=== PATIENT | female | born 1955 | race Caucasian/White ===

== ENCOUNTER 2017-11-21 17:02 | Emergency (ER) | payer OTHER ==
[~2017-11-21] VITALS: Ht 150 cm; Wt 54.0 kg
--- NOTE | ~2017-11-21 | EKG ---
[address] [place] [address] ELECTROCARDIOGRAM REPORT Name: KIMBER BRADLEY Room #: [id number] Admission: 11/21/17 Attend Phys: Discharge: 11/21/17 Date of : 55 Report #: [id number] THIS REPORT FOR: //name// [facility] ED Test Date: 2017-11-21 Test Time: 17:18:55 Pat Name: KIMBER CHRISTIE Department: Room: Gender: F Installation Supervisor: RAE : 1955 Requested By: Ayaan Stoddard Order Number: [id number] MD: Eugene Rooney Measurements Intervals [place] Rate: 67 P: 12 NC: 183 QRS: -13 QRSD: 87 T: 17 QT: 401 QTc: 424 Interpretive Statements Sinus rhythm Normal tracing No previous ECG available for comparison Electronically Signed On 11-22-2017 8:31:01 CDT by Eugene Rooney [email or web address] <ELECTRONICALLY SIGNED> By: Eugene Rooney MD, [facility] 11/22/17 0831 1718 1718 Eugene Rooney MD, FACC /EPI
[2017-11-21 17:21] LABS: BASOPHILS 0.9 % (0.0-2.0); EOSINOPHILS 0.8 % (0.0-3.0); HEMATOCRIT 38.3 % (37.0-47.0); LYMPHOCYTES 32.6 % (24.0-44.0); MCH 29.3 pg (26.0-34.0); MCHC 33.8 g/dL (28.0-37.0); MCV 86.7 fL (80.0-100.0); MONOCYTES 5.9 % (1.0-8.0); PLATELET COUNT 216 thou/uL (150-400); POLYS 59.8 % (36.0-66.0); RBC 4.42 mil/uL (4.20-5.00); RDW 12.5 % (10.5-14.5); WBC 6.6 thou/uL (4.0-11.0)
[2017-11-21 17:30] LABS: ANION GAP 8 mmol/L (7-16); BUN 18 mg/dL (7-18); CALCIUM 9.3 mg/dL (8.5-10.1); CHLORIDE 104 mmol/L (98-107); CO2 26 mmol/L (21-32); CREATININE 0.9 mg/dL (0.6-1.0); GLUCOSE 93 mg/dL (74-106); POTASSIUM 3.6 mmol/L (3.5-5.1); SODIUM 138 mmol/L (136-145)
[2017-11-21 17:38] LABS: ALBUMIN 4.1 g/dL (3.4-5.0); SGOT 23 U/L (15-37); SGPT 26 U/L (30-65); TOTAL BILIRUBIN 0.5 mg/dL (<0.1-1.0); TROPONIN-I <0.06 ng/mL (<0.06)
[2017-11-21 17:49] LABS: URINE BILIRUBIN NEGATIVE (Negative); URINE BLOOD 1+ (Negative); URINE CLARITY CLEAR; URINE COLOR YELLOW; URINE GLUCOSE-RANDOM* NEGATIVE (Negative); URINE KETONES NEGATIVE (Negative); URINE LEUKOCYTES-REFLEX NEGATIVE (Negative); URINE NITRITE-REFLEX NEGATIVE (Negative); URINE PROTEIN (DIPSTICK) NEGATIVE (Negative); URINE UROBILINOGEN 0.2 E.U./dl (0.2-1.0)
[2017-11-21 17:59] LABS: BACTERIA-REFLEX 1-9 Few /HPF (None Seen); CASTS None Seen /LPF (None Seen); CRYSTALS None Seen /LPF (None Seen); SQUAMOUS 0-3 Few /LPF (0-3); URINE RBC 0-2 Rare /HPF (0-2); URINE WBC-REFLEX None Seen /HPF (0-5)
[2017-11-21] MEDS ORDERED: NEURONTIN 300300 M1 PO (18:06)
[2017-11-21] MEDS ORDERED: PROTONIX40 M1 PO (18:06)
[2017-11-21] MEDS ORDERED: COZAAR 50 MG TA50 MG PO (18:08)
[2017-11-21] MEDS ORDERED: JANUVIA100 MG PO (18:08)
[2017-11-21] MEDS ORDERED: PEPCID20 MG PO (18:09)
[2017-11-21] MEDS ORDERED: PSYLLIUM SEED480 GM PO (18:10)
[2017-11-21] MEDS ORDERED: CARAFATE 1 GM TA1 G1 PO (20:32)
[2017-11-21] MEDS ORDERED: GAS RELIEF80 MG PO (20:32)
[2017-11-21 20:37] VITALS: BP 164/77
== END 2017-11-21 20:38 | disposition home or self-care (01) ==
LOC: ER 17:02
PROVIDERS: Physician Assistant
DX: K29.70 Gastritis, unspecified, without bleeding (principal); R14.2 Eructation; R07.9 Chest pain, unspecified; E11.9 Type 2 diabetes mellitus without complications